=== PATIENT | male | born 1930 | race Caucasian/White ===

== ENCOUNTER → 2016-12-21 | Day surgery (SDC) | payer MEDICARE, BC ==
[~2016-12-21] MED LIST: Apraclonidine 0.5% Ophth Soln 5 ML Bot EYELF ONE; Balanced Salt Solution Ophth Irrig 500 ML Bottle IOCULAR ONE; Chondroitin Sulfate/Hyaluronate Sodium Ophth Inj 0.75 ML Syringe EYELF ONE; Dexamethasone 4 MG/ML SDV IV ONE; Dexamethasone 4 MG/ML SDV ONE; Dexamethasone/Neomycin/Polymyxin B Ophth Oint 3.5 GM Tube EYELF ONE; Diclofenac Sodium 0.1% Ophth Soln 5 ML Bottle EYELF ONE; Dilation Soln 1 EA EACH EYELF ONE; Lidocaine 1% 30 ML SDV ONE; Midazolam 1 MG/ML 2 ML SDV IV ONE; Midazolam 1 MG/ML 2 ML SDV ONE; Moxifloxacin 0.5% Ophth Soln 3 ML Bottle EYELF ONE; Phenylephrine 10% Ophth Soln 5 ML Bot EYELF ONE; Povidone-Iodine 5% Sterile Ophth Soln 30 ML Bottle EYELF ONE; Proparacaine 0.5% Ophth Soln 15 ML Bottle EYELF SCH; Sodium Chloride 0.9% 10 ML Syringe FLUSH PRN; Tetracaine HCl/PF 0.5% 4 ML Bottle EYELF ONE; Timolol Maleate 0.5% Ophth Soln 5 ML Bottle EYELF ONE; Vancomycin 500 MG SDV EYELF ONE
--- NOTE | 2016-12-21 09:54 | OR ---
DATE: PREOPERATIVE DIAGNOSIS: Cataract, left eye. POSTOPERATIVE DIAGNOSIS: Cataract, left eye. PROCEDURE: Extracapsular cataract extraction with intraocular lens implant, left eye. ANESTHESIA: Topical/local MAC. COMPLICATIONS: None. INDICATION: Mr. Rodrigez was seen in the clinic. He has complained of a slow progressive decrease in vision. His clinical examination revealed visually significant cataract. He is symptomatic and requested cataract surgery. I explained implant options and he requested a monofocal implant. He voiced an understanding with respect to risks and wished to proceed. Surgical risks were explained preoperatively including the potential for visual loss. OPERATIVE DESCRIPTION: After informed consent was obtained and the risks, benefits, and alternatives were explained, the patient was brought to the operative suite and topical anesthesia was administered. The patient was then prepped and draped in the sterile fashion and attention was placed on the left eye. A sterile lid speculum was placed into the left eye to allow operative exposure. A full-thickness paracentesis was made in the temporal portion of the operative eye. Preservative-free lidocaine 0.1 mL was injected into the anterior chamber followed by viscoelastic. A full-thickness corneal incision was then made into the anterior chamber. A bent needle cystotome was used to create a small milton in the anterior capsule. The capsulorrhexis forceps was then used to create a 360-degree curvilinear capsulorrhexis. The nucleus was then removed using a phacoemulsification handpiece and the remaining cortical material was then removed with irrigation and aspiration handpiece. Following removal of the cortical material, the capsular bag was then inspected and noted to be free of any holes or tears. Viscoelastic was then injected into the capsular bag and the intraocular lens was inserted into the capsular bag. No complication occurred. The viscoelastic material was then removed from both the anterior and posterior chambers and from behind the IOL. The lens and capsular bag were then reinspected. The IOL was well centered and the capsular bag intact. The wound and paracentesis sites were inspected and hydrated with balanced saline solution. Both were found to be self-sealing. The intraocular pressure was assessed digitally and found to be within normal range. A good red reflex was noted at the completion of the procedure. No complications occurred during the operation. At the completion of the procedure, Maxitrol, Voltaren, and Iopidine drops were placed into the operative eye. A sterile eye shield was placed over the operative eye and the patient was transported to the postoperative recovery area having tolerated the procedure well. Postoperative instructions were given along with a postoperative appointment. The patient was advised to call with any questions or concerns. [facility] /[id number]
[2016-12-21 11:33] VITALS: BP 117/62
== END | disposition home or self-care (01) ==
LOC: DL.SDS 06:55
PROVIDERS: ATTEND Ophthalmology
DX: H26.9 Unspecified cataract (principal); I71.4 Abdominal aortic aneurysm, without rupture; N40.0 Benign prostatic hyperplasia without lower urinary tract symptoms; I50.9 Heart failure, unspecified; I10 Essential (primary) hypertension; E78.5 Hyperlipidemia, unspecified; Z79.01 Long term (current) use of anticoagulants; Z91.012 Allergy to eggs; Z91.018 Allergy to other foods; Z79.82 Long term (current) use of aspirin; Z79.899 Other long term (current) drug therapy; Z95.1 Presence of aortocoronary bypass graft; Z95.2 Presence of prosthetic heart valve; Z95.0 Presence of cardiac pacemaker; Z98.52 Vasectomy status; Z87.891 Personal history of nicotine dependence
CPT/HCPCS: 66984; A9270; C1780; J1100; J2250; J3370; J7050; 00142

== ENCOUNTER 2019-03-19 14:55 | Emergency (ER) | payer MEDICARE, BC ==
[2019-03-19] MEDS ORDERED: Amoxicillin/Clavulanate K 875-125 MG Tab PO ONE ×2 (14:56→15:52)
--- NOTE | 2019-03-19 15:08 | EDM.PDOC ---
"ED HPI GENERAL MEDICAL PROBLEM - General Chief Complaint: Trauma Stated Complaint: FALL Time Seen by Provider: 03/19/19 15:00 Source of Information: Reports: Patient, Family (), RN, RN Notes Reviewed History Limitations: Reports: No Limitations - History of Present Illness INITIAL COMMENTS - FREE TEXT/NARRATIVE: Pt presented to the ER ambulatory from home with c/o face injury sustained just prior to arrival from a ground level fall. Pt reports he got his foot stuck on a rug and tripped. He denies any other injury. Denies LOC or neck pain. He takes an Aspirin 81mg daily. At 1506HRS the triage nurse converted to a TRAUMA paper chart. Last Tetanus vaccine >10yrs per pt. Pt denies any pain. Time seen by provider: 1508HRS C-collar: not applied. C-spine cleared by Hx and exam, and pt refused collar. GCS on arrival: 15 Onset: Today, Sudden Onset Date: 03/19/19 Onset Time: 14:30 Duration: Constant Location: Reports: Face, Other (Nose) Quality: Reports: Other (Denies pain) Context: Reports: Other (Ground level fall) Associated Symptoms: Reports: No Other Symptoms - Related Data Allergies Allergy/AdvReac Type Severity Reaction Status Date / Time eggs Allergy Severe Anaphylactic Uncoded 03/19/19 15:21 Shock nuts Allergy Severe Anaphylactic Uncoded 03/19/19 15:21 Shock Home Meds: Home Meds Aspirin [Adult Low Dose Aspirin EC] 81 mg PO DAILY 02/10/14 [History] Cholecalciferol (Vitamin D3) [Vitamin D3] 2,000 unit PO DAILY 02/10/14 [History] Lisinopril 2.5 mg PO DAILY 02/10/14 [History] Multivitamin with Minerals [Multiple Vitamin] 1 tab PO DAILY 02/10/14 [History] Psyllium Husk [Metamucil] 0.52 gm PO BEDTIME 02/10/14 [History] Simvastatin [Zocor] 20 mg PO BEDTIME 02/10/14 [History] allopurinoL [Zyloprim] 100 mg PO TID 02/10/14 [History] carvediloL [Carvedilol] 6.25 mg PO BID 02/10/14 [History] Furosemide 40 mg PO DAILY 05/06/16 [History] Amiodarone HCl [Pacerone] 200 mg PO DAILY 08/23/18 [History] Betamethasone Valerate [Valisone 0.1% Crm] 1 applic TOP ASDIRECTED PRN 08/23/18 [History] Memantine HCl 10 mg PO DAILY 08/23/18 [History] Megestrol Acetate 1 tab PO TID 11/12/18 [History] Digoxin [Lanoxin] 62.5 mcg PO ASDIRECTED #15 tablet 11/16/18 [Rx] Nitrofurantoin [place]/Macrocryst [Nitrofurantoin [place]-MCR] 100 mg PO BIDMEALS #20 cap 11/16/18 [Rx] Past Medical History HEENT History: Reports: Allergic Rhinitis, Cataract, Impaired Vision, Other ( See Below) (Remote nose fracture with leftward deviated septum.) Cardiovascular History: Reports: Afib, Aneurysm, CAD, Heart Failure, High Cholesterol, Hypertension, Pacemaker Respiratory History: Reports: None Gastrointestinal History: Reports: None Genitourinary History: Reports: Acute Renal Failure, BPH, Chronic Renal Insuffiency Musculoskeletal History: Reports: Arthritis, Gout Neurological History: Reports: None Psychiatric History: Reports: Other (See Below) Other Psychiatric History: memory loss Endocrine/Metabolic History: Reports: Vitamin D Deficiency Hematologic History: Reports: None Immunologic History: Reports: None Oncologic (Cancer) History: Reports: Prostate Dermatologic History: Reports: Other (See Below) Other Dermatologic History: vaculitis of skin, athletes foot, eczema - Infectious Disease History Infectious Disease History: Reports: None - Past Surgical History Head Surgeries/Procedures: Reports: None HEENT Surgical History: Reports: Cataract Surgery Cardiovascular Surgical History: Reports: Pacer, Valve Replacement Respiratory Surgical History: Reports: None GI Surgical History: Reports: Colonoscopy Male Surgical History: Reports: Prostatectomy, Vasectomy Endocrine Surgical History: Reports: None Neurological Surgical History: Reports: None Musculoskeletal Surgical History: Reports: None Oncologic Surgical History: Reports: None Dermatological Surgical History: Reports: None Social & Family History - Family History Family Medical History: Noncontributory - Caffeine Use Caffeine Use: Reports: Coffee - Living Situation & Occupation Living situation: Reports: , with Spouse Occupation: Retired Review of Systems - Review of Systems Review Of Systems: Comprehensive ROS is negative, except as noted in HPI. ED EXAM, GENERAL - Physical Exam Exam: See Below Free Text/Narrative:: PRIMARY TRAUMA SURVEY (1508hrs) AIRWAY: Patent nasal and oral airways. Small amount of blood slowly dripping from left nares. BREATHING: Spontaneous respirations with clear B/L breath sounds. CIRCULATION: Heart RRR, intact distal pulses at all four extremities, no cyanosis. DEFORMITY/DISABILITY: No long bone deformities. No active bleeding. No neuro. deficits. Abdomen benign to exam. EXPOSURE: Skin warm, and dry. SECONDARY TRAUMA SURVEY FOLLOWS (1550hrs) Exam Limited By: No Limitations General Appearance: Alert, WD/WN, No Apparent Distress Eye Exam: Bilateral Eye: EOMI, Normal Inspection, PERRL Ears: Normal External Exam, Normal Canal, Hearing Grossly Normal, Normal TMs Nose: Nasal Swelling, Other (slow drip of bleeding from left nares) Throat/Mouth: Normal Teeth, Normal Oropharynx, Normal Voice, No Airway Compromise, Other (Abrasion w/bruise to left mouth/lips) Head: Normocephalic, Other (Contusion left forehead, nose, and periorbital face. Skin tear/flap abrasion to nose.) Neck: Normal Inspection, Supple, Non-Tender, Full Range of Motion, Other (C- spine non-tender with full ROM, cleared by Hx and exam). No: Tender Lateral, Tender Midline Respiratory/Chest: No Respiratory Distress, Lungs Clear, Normal Breath Sounds, No Accessory Muscle Use, Chest Non-Tender Cardiovascular: Regular Rate, Rhythm GI/Abdominal: Normal Bowel Sounds, Soft, Non-Tender, No Organomegaly, No Distention, No Abnormal Bruit, No Mass Back Exam: Normal Inspection, Full Range of Motion, NT Extremities: Normal Inspection, Normal Range of Motion, Non-Tender, Normal Capillary Refill, No Pedal Edema Neurological: Alert, Oriented, CN II-XII Intact, Normal Cognition, Normal Gait, No Motor/Sensory Deficits Psychiatric: Normal Affect, Normal Mood Skin Exam: Warm, Dry Course - Orders/Labs/Meds Orders: Active Orders 24 hr Category Date Time Status Vaccines to be Administered [RC] PER UNIT ROUTINE Care 03/19/19 15:22 Active Head wo Cont [CT] Stat Exams 03/19/19 15:08 Taken Max Facial Sinus wo Cont [CT] Stat Exams 03/19/19 15:10 Taken Meds: Medications Discontinued Medications Generic Name Dose Route Start Last Admin Trade Name Freq PRN Reason Stop Dose Admin Amoxicillin/Clavulanate Potassium 1 tab 03/19/19 15:52 Augmentin 875 Mg/125 Mg PO 03/19/19 15:53 ONETIME ONE Amoxicillin/Clavulanate Potassium Confirm 03/19/19 16:01 Augmentin 875 Mg/125 Mg Administered 03/19/19 16:02 Dose 2 tab .ROUTE .STK-MED ONE Bacitracin 1 dose 03/19/19 15:21 03/19/19 15:37 Bacitracin Oint 1 Gm TOP 03/19/19 15:22 1 dose ONETIME ONE Administration Diphtheria/Tetanus/Acell Pertussis 0.5 ml 03/19/19 15:22 03/19/19 15:36 Adacel IM 03/19/19 15:23 0.5 ml .ONCE ONE Administration Oxymetazoline HCl 1 ml 03/19/19 15:21 03/19/19 15:37 Afrin Original 0.05% Nasal [place] [facility] 03/19/19 15:22 2 sprays ONETIME ONE Administration - Radiology Interpretation Free Text/Narrative:: [facility] Final Radiology Report Call: [phone] assistance Online chat: [email or web address] Name: DOREEN SU Age: 88Years M Date: 03/19/2019 SSN: -- : [id number] Study: CT HEAD WO Requesting Physician: ARACELY RAND Images: [id number] Addl Studies: Provided Clinical History: Contrast: Without Contrast Medium: Contrast Amount: Contrast Method: Page 1 of 2 PROCEDURE INFORMATION: Exam: CT Head Without Contrast Exam date and time: 03/19/2019 3:17 PM Age: 88 years old Clinical indication: Injury or trauma; Initial encounter; Blunt trauma ( contusions or hematomas); Without loss of consciousness; Patient HX: Fall. Laceration on nose. On blood thinner TECHNIQUE: Imaging protocol: Computed tomography of the head without contrast. Radiation optimization: All CT scans at this facility use at least one of these dose optimization techniques: automated exposure control; mA and/or kV adjustment per patient size (includes targeted exams where dose is matched to clinical indication); or iterative reconstruction. COMPARISON: No relevant prior studies available. FINDINGS: Brain: Age-related atrophy and chronic white matter ischemic changes, with no evidence of an acute intracranial abnormality. No hemorrhage, mass effect or midline shift. 1.4 cm cystic area noted within the left posterior parietal lobe. Ventricles: The ventricular system demonstrates mild diffuse compensatory enlargement. Bones/joints: There is a fracture of the left nasal bone and septum. Sinuses: Fluid noted within the ethmoid air cells. Mastoid air cells: Visualized mastoid air cells are well aerated. Soft tissues: Nasal soft tissue swelling is present. Vasculature: The vasculature demonstrates diffuse mild atherosclerotic calcification. IMPRESSION: 1. Age-related atrophy and chronic white matter ischemic changes, with no evidence of an acute intracranial abnormality. 2. No hemorrhage, mass effect or midline shift. DOREEN SU | Final Radiology Report CONFIDENTIALITY STATEMENT This report is intended only for use by the referring physician, and only in accordance with law. If you received this in error, call [phone]. Page 2 of 2 3. There is a fracture of the left nasal bone and septum. 4. Fluid noted within the ethmoid air cells. Thank you for allowing us to participate in the care of your patient. Dictated and Authenticated by: Hugo Childers DO 03/19/2019 3:43 PM Central Time ([place] & [place]) [facility] Final Radiology Report Call: [phone] assistance Online chat: [email or web address] Name: DOREEN SU Age: 88Years M Date: 03/19/2019 SSN: -- : [id number] Study: CT MAXILLOFACIAL/SINUSES WO Requesting Physician: ARACELY RAND Images: [id number] Addl Studies: Provided Clinical History: Contrast: Without Contrast Medium: Contrast Amount: Contrast Method: Page 1 of 2 PROCEDURE INFORMATION: Exam: CT Maxillofacial Without Contrast Exam date and time: 03/19/2019 3:17 PM Age: 88 years old Clinical indication: Injury or trauma; Initial encounter; Blunt trauma ( contusions or hematomas); Patient HX: Fall. Laceration on nose. On blood thinner TECHNIQUE: Imaging protocol: Computed tomography images of the face without contrast. Radiation optimization: All CT scans at this facility use at least one of these dose optimization techniques: automated exposure control; mA and/or kV adjustment per patient size (includes targeted exams where dose is matched to clinical indication); or iterative reconstruction. COMPARISON: No relevant prior studies available. FINDINGS: Orbits: Orbits are normal. Globes are unremarkable. Sinuses: Fluid noted within the ethmoid air cells. Mucosal thickening noted within both maxillary sinuses. Bones/joints: There is a fracture of the left nasal bone and nasal septum. Moderate degenerative changes of the cervical spine present. Vasculature: The vasculature demonstrates diffuse mild atherosclerotic calcification. Soft tissues: Nasal soft tissue swelling is present. IMPRESSION: 1. There is a fracture of the left nasal bone and nasal septum. 2. Nasal soft tissue swelling is present. 3. Fluid noted within the ethmoid air cells. DOREEN SU | Final Radiology Report CONFIDENTIALITY STATEMENT This report is intended only for use by the referring physician, and only in accordance with law. If you received this in error, call [phone]. Page 2 of 2 Thank you for allowing us to participate in the care of your patient. Dictated and Authenticated by: Hugo Childers DO 03/19/2019 3:46 PM Central Time ([place] & [place]) - Re-Assessments/Exams Free Text/Narrative Re-Assessment/Exam: 03/19/19 16:16 Reassessment: Pt awake, alert and eager to be discharged home. He denies any pain, ambulates steadily, and agrees to f/u in clinic next week for recheck and ENT referral if needed. Departure - Departure Time of Disposition: 16:20 Disposition: Home, Self-Care 01 Condition: Good Clinical Impression: Nasal bones, closed fracture Qualifiers: Encounter type: initial encounter Qualified Code(s): S02.2XXA - Fracture of nasal bones, initial encounter for closed fracture Contusion of face Qualifiers: Encounter type: initial encounter Qualified Code(s): S00.83XA - Contusion of other part of head, initial encounter Abrasion of face Qualifiers: Encounter type: initial encounter Qualified Code(s): S00.81XA - Abrasion of other part of head, initial encounter - Discharge Information *PRESCRIPTION DRUG MONITORING PROGRAM REVIEWED*: No *COPY OF PRESCRIPTION DRUG MONITORING REPORT IN PATIENT LALY: No Instructions: Skin Tear Care, [id number], Nasal Fracture, [id number], Facial or Scalp Contusion, [id number] Forms: ED Department Discharge Additional Instructions: Rx: Augmentin 875mg Follow up in clinic with your doctor next week for recheck and referral to an Ear/Nose/Throat specialist if needed. Sepsis Event Note - Focused Exam Date Exam was Performed: 03/19/19 Time Exam was Performed: 16:05 - My Orders Last 24 Hours: My Active Orders 03/19/19 15:08 Head wo Cont [CT] Stat 03/19/19 15:10 Max Facial Sinus wo Cont [CT] Stat 03/19/19 15:22 Vaccines to be Administered [RC] PER UNIT ROUTINE - Assessment/Plan Last 24 Hours: My Active Orders 03/19/19 15:08 Head wo Cont [CT] Stat 03/19/19 15:10 Max Facial Sinus wo Cont [CT] Stat 03/19/19 15:22 Vaccines to be Administered [RC] PER UNIT ROUTINE"
[2019-03-19] MEDS ORDERED: Oxymetazoline 0.05% Nasal Spray 15 ML Bottle NAS ONE (15:21)
[2019-03-19] MEDS ORDERED: Bacitracin Oint 1 GM U/D Packet TOP ONE (15:21)
[2019-03-19] MEDS ORDERED: Diphtheria,Pertussis(Acell),Tetanus Vaccine 0.5 ML SDV IM ONE (15:22)
[2019-03-19] MEDS ORDERED: Amoxicillin/Clavulanate K 875-125 MG Tab ONE (16:01)
[2019-03-19] MEDS ORDERED: Oxymetazoline 0.05% Nasal Spray 15 ML Bottle ONE (16:21)
== END 2019-03-19 16:34 | disposition home or self-care (01) ==
LOC: DL.ED 14:55
DX: S02.2XXA Fracture of nasal bones, initial encounter for closed fracture (principal); S00.531A Contusion of lip, initial encounter; S00.83XA Contusion of other part of head, initial encounter; S00.10XA Contusion of unspecified eyelid and periocular area, initial encounter; I13.0 Hypertensive heart and chronic kidney disease with heart failure and stage 1 through stage 4 chronic kidney disease, or unspecified chronic kidney disease; N18.9 Chronic kidney disease, unspecified; I50.9 Heart failure, unspecified; I25.10 Atherosclerotic heart disease of native coronary artery without angina pectoris; I48.91 Unspecified atrial fibrillation; Z23 Encounter for immunization; Z79.82 Long term (current) use of aspirin; Z91.018 Allergy to other foods; Z91.012 Allergy to eggs; Z79.899 Other long term (current) drug therapy; W01.0XXA Fall on same level from slipping, tripping and stumbling without subsequent striking against object, initial encounter; Y92.009 Unspecified place in unspecified non-institutional (private) residence as the place of occurrence of the external cause
CPT/HCPCS: 70450; 70486; 90471; 90715; 99283; 99284; A9270